=== PATIENT | female | born 1955 | race African-American/Black ===

== ENCOUNTER 2019-11-19 23:07 | Emergency (ER) | payer OTHER ==
[2019-11-19 23:13] VITALS: BP 133/49; TEMP 98.7; BMI 23.1
[2019-11-19 23:14] VITALS: PULSE 70
[2019-11-20] MEDS ORDERED: ACETAMINOPHEN 650 MG/20.3 ML ORAL SOLUTION (CUPS) PO ONE (00:06)
[2019-11-20] MEDS ORDERED: predniSONE 20 MG TABLET (UD) PO ONE (00:07)
[2019-11-20] MEDS ORDERED: ALBUTEROL SO4 0.083% IH SOL 2.5 MG/3 ML VIAL.NEB. NEB ONE (00:07)
--- NOTE | 2019-11-20 00:38 | PDOC ---
Documentation entered by Ramya Carcamo SCRIBE, acting as scribe for Norah Abebe MD. Norah Abebe MD: This documentation has been prepared by the Dona ferrari Nirvannie, SCRIBE, under my direction and personally reviewed by me in its entirety. I confirm that the documentation accurately reflects all work, treatment, procedures, and medical decision making performed by me. History of Present Illness - General Chief Complaint: Shortness of Breath Stated Complaint: NAUSEA/BODY PAIN Time Seen by Provider: 11/19/19 23:54 History Source: Patient Exam Limitations: No Limitations - History of Present Illness Initial Comments: 11/20/19 00:15 The patient is a 64 year old female, with a significant past medical history of COPD (on Ventolin), who presents to the emergency department with diffuse body aches, malaise, and nausea. Patient notes to have recently flown back to [place] from [place] 2 days ago. She denies recent dysuria, frequency, urgency or hematuria. Allergies: NKDA Social history: Quit smoking 12 years ago. Primary Care Physician: Dr. Gan ([facility]) Past History - Past Medical History Allergies/Adverse Reactions: Allergies Allergy/AdvReac Type Severity Reaction Status Date / Time No Known Allergies Allergy Verified 11/19/19 23:13 Home Medications: Ambulatory Orders Albuterol Sulfate Inhaler - [Ventolin Hfa Inhaler -] 1 - 2 inh PO Q4H PRN #1 inhaler MDD 1 11/20/19 Azithromycin [Zithromax -] 250 mg PO UTDICT #6 tab 11/20/19 predniSONE [Deltasone -] 20 mg PO DAILY #4 tablet MDD 1 TAB 11/20/19 COPD: Yes - Psycho Social/Smoking Cessation Hx Smoking History: Former smoker Have you smoked in the past 12 months: No If you are a former smoker, when did you quit?: 20 Information on smoking cessation initiated: No Review of Systems - Review of Systems Able to Perform ROS?: Yes Comments:: 11/20/19 00:16 CONSTITUTIONAL: Present: Malaise. Diffuse body aches. Absent: diaphoresis, loss of appetite HEENT: Absent: rhinorrhea, nasal congestion, throat pain, throat swelling, difficulty swallowing, mouth swelling, ear pain, eye pain, visual Changes CARDIOVASCULAR: Absent: chest pain, syncope, palpitations, irregular heart rate, lightheadedness , peripheral edema RESPIRATORY: Absent: dyspnea with exertion, orthopnea, wheezing, stridor, hemoptysis GASTROINTESTINAL: Present: Nausea. Absent: abdominal pain, abdominal distension, vomiting, diarrhea, constipation, melena, hematochezia GENITOURINARY: Absent: dysuria, frequency, urgency, hesitancy, hematuria, flank pain, genital pain MUSCULOSKELETAL: Absent: myalgia, arthralgia, joint swelling SKIN: Absent: rash, itching, pallor HEMATOLOGIC/IMMUNOLOGIC: Absent: easy bleeding, easy bruising, lymphadenopathy, frequent infections ENDOCRINE: Absent: unexplained weight gain, unexplained weight loss, heat intolerance, cold intolerance NEUROLOGIC: Absent: headache, focal weakness or paresthesias, dizziness, unsteady gait, seizure, mental status changes, bladder or bowel incontinence PSYCHIATRIC: Absent: anxiety, depression, suicidal or homicidal ideation, hallucinations. All Other Systems: Reviewed and Negative *Physical Exam - Vital Signs Last Vital Signs Temp Pulse Resp BP Pulse Ox 98.7 F 70 18 133/49 L 89 L 11/19/19 23:09 11/19/19 23:09 11/19/19 23:09 11/19/19 23:11/19/19 23:09 - Physical Exam 11/20/19 00:17 GENERAL: +Uncomfortably appearing. Well developed, well nourished. Awake and alert. No acute distress. HEENT: Normocephalic, atraumatic. PERRLA, EOMI. No conjunctival pallor. Sclera are non- icteric. Moist mucous membranes. Oropharynx is clear. NECK: Supple. Full ROM. No JVD. Carotid pulses 2+ and symmetric, without bruits. No thyromegaly. No lymphadenopathy. CARDIOVASCULAR: Regular rate and rhythm. No murmurs, rubs, or gallops. Distal pulses are 2+ and symmetric. PULMONARY: Saturating 93-95% on room air. No evidence of respiratory distress. Lungs clear to auscultation bilaterally. No wheezing, rales or rhonchi. ABDOMINAL: Soft. Non-tender. Non-distended. No rebound or guarding. No organomegaly. Normoactive bowel sounds. MUSCULOSKELETAL Normal range of motion at all joints. No bony deformities or tenderness. No CVA tenderness. EXTREMITIES: No cyanosis. No clubbing. No edema. No calf tenderness. SKIN: Warm and dry. Normal capillary refill. No rashes. No jaundice. NEUROLOGICAL: Alert, awake, appropriate. Cranial nerves 2-12 intact. No deficits to light touch and temperature in face, upper extremities and lower extremities. No motor deficits in the in face, upper extremities and lower extremities. Normoreflexic in the upper and lower extremities. Normal speech. Toes are down- going bilaterally. Gait is normal without ataxia. PSYCHIATRIC: Cooperative. Good eye contact. Appropriate mood and affect. ED Treatment Course - LABORATORY CBC & Chemistry Diagram: 11/20/19 00:57 11/20/19 00:57 - RADIOLOGY Radiology Studies Ordered: Category Date Time Status CHEST X-RAY PORTABLE* [RAD] Stat Radiology 11/20/19 00:10 Ordered Medical Decision Making - Medical Decision Making 11/20/19 00:12 34-year-old female came in because today she had general malaise, body aches, nausea She did fly from [place] 2 days ago. Past medical history significant for COPD and use tobacco up until the age of 52 11/20/19 02:29 Patient has longstanding history of COPD but does not use oxygen at home Patient does have an MDI that she uses at home EKG is normal sinus rhythm with no ST elevations or depressions, there is inverted T waves in V1 and V2 Troponin is negative and she denies any chest pain 11/20/19 02:30 CBC did not show any leukocytosis or anemia Chest x-ray does not show any large consolidation, there are no effusions and there is no pneumothorax 11/20/19 02:31 11/20/19 02:33 Review of her chemistry shows that they are all within normal limits She has a negative troponin Discharge - Discharge Information Problems reviewed: Yes Clinical Impression/Diagnosis: Flu-like symptoms, Body aches, COPD exacerbation COPD (chronic obstructive pulmonary disease) Qualifiers: COPD type: unspecified COPD Qualified Code(s): J44.9 - Chronic obstructive pulmonary disease, unspecified Condition: Stable Disposition: HOME - Admission No - Additional Discharge Information Prescriptions: Albuterol Sulfate Inhaler - [Ventolin Hfa Inhaler -] 1 - 2 inh PO Q4H PRN #1 inhaler MDD 1 PRN Reason: Asthma Azithromycin [Zithromax -] 250 mg PO UTDICT #6 tab predniSONE [Deltasone -] 20 mg PO DAILY #4 tablet MDD 1 TAB - Follow up/Referral Referrals: Kaylah Dennis [Primary Care Provider] - - Patient Discharge Instructions Patient Printed Discharge Instructions: DI for Chronic Obstructive Pulmonary Disease, DI for Fatigue Additional Instructions: PLEASE FINISHED CLOTH EXAMINER YOUR MEDICATIONS AT YOUR PHARMACY AND TAKE THEM DIRECTED TAKE TYLENOL OR MOTRIN FOR BODY ACHES OR IF YOU DEVELOP FEVER REST STAY HYDRATED RETURN FOR ANY BREATHING DIFFICULTIES - Post Discharge Activity Work/Back to School Note: Back to Work
[2019-11-20] MEDS ORDERED: predniSONE 20 MG TABLET (UD) ONE (01:11)
[2019-11-20] MEDS ORDERED: ACETAMINOPHEN 325 MG TABLET (FP) ONE (01:12)
[2019-11-20] MEDS ORDERED: ALBUTEROL SO4 2.5/IPRATROPIUM 0.5 INH SOL 3 ML VIAL.NEB. NEB ONE (01:12)
[2019-11-20 01:17] LABS: BASO % 0.7 % (0-2.0); EOS % 2.9 % (0-4.5); HEMATOCRIT 39.5 % (32.4-45.2); HEMOGLOBIN 13.2 GM/dL (10.7-15.3); LYMPH % 31.5 % (8-40); MCH 30.9 pg (25.7-33.7); MCHC 33.6 g/dl (32.0-36.0); MEAN PLT VOLUME 8.1 fl (7.5-11.1); MONO % 13.5 % (3.8-10.2); NEUT % 51.4 % (42.8-82.8); PLATELET COUNT 173 K/MM3 (134-434); RBC 4.29 M/mm3 (3.60-5.2); RDW 12.9 % (11.6-15.6); WHITE BLOOD COUNT 6.1 K/mm3 (4.0-10.0)
[2019-11-20 02:11] LABS: ALK PHOS 60 U/L (45-117)
[2019-11-20 02:24] LABS: ALBUMIN 3.4 g/dl (3.4-5.0); BLOOD UREA NITROGEN 12.7 mg/dL (7-18); CALCIUM 8.2 mg/dL (8.5-10.1); CHLORIDE 110 mmol/L (98-107); CO2 28 mmol/L (21-32); GLUCOSE,RANDOM 83 mg/dL (74-106); POTASSIUM 3.8 mmol/L (3.5-5.1); SODIUM 143 mmol/L (136-145)
[2019-11-20 02:29] LABS: BILIRUBIN,TOTAL 0.2 mg/dL (0.2-1); CREATININE 0.7 mg/dL (0.55-1.3); SGOT/AST 19 U/L (15-37); SGPT/ALT 24 U/L (13-61); TOT PROT 6.4 g/dl (6.4-8.2)
[2019-11-20] MEDS ORDERED: AZITHROMYCIN 500 MG TABLET PO ONE (02:52)
[2019-11-20] MEDS ORDERED: AZITHROMYCIN 250 MG TABLET ONE (03:12)
--- NOTE | 2019-11-20 11:38 | EKG ---
Test Reason : Blood Pressure : / mmHG Vent. Rate : 068 BPM Atrial Rate : 068 BPM P-R Int : 128 ms QRS Dur : 084 ms QT Int : 408 ms P-R-T Axes : 068 082 071 degrees QTc Int : 433 ms NORMAL SINUS RHYTHM NORMAL ECG NO PREVIOUS ECGS AVAILABLE Confirmed by Elie Barajas MD ([id number]) on 11/20/2019 11:37:35 AM Referred By: Confirmed By:Elie Barajas MD
== END 2019-11-20 03:28 | disposition home or self-care (01) ==
LOC: JER 23:07
PROC: 3E0F7GC Introduction of Other Therapeutic Substance into Respiratory Tract, Via Natural or Artificial Opening (ICD-10-PCS; principal; 2019-11-19)
DX: J44.1 Chronic obstructive pulmonary disease with (acute) exacerbation (principal); J11.1 Influenza due to unidentified influenza virus with other respiratory manifestations; Z87.891 Personal history of nicotine dependence
CPT/HCPCS: 36415; 71045-TC-FY; 80053; 82550; 84484; 85025; 87804; 93005; 93010; 94640; 99283-25